=== PATIENT | female | born 1930 | race Caucasian/White ===

== ENCOUNTER 2016-12-31 10:37 | Emergency (ER) | payer BC, MEDICARE ==
[2015-11-16 09:14] VITALS: BMI 27.9
[~2016-12-31 10:37] MED LIST: ACETAMINOPHEN500 M1 PO; AVALIDE 300-12.1 TA1 PO; BENADRYL25 MG PO; CARTIA XT180 MG PO; FISH OIL 1,0001 CA1 PO; GAVISCON E1 TAB.CHEW PO; LUTEIN20 MG PO; METFORMIN HCL500 M1 PO; NEXIUM40 MG PO; PLAVIX75 MG PO; TIROSINT125 MCG PO; TRICOR48 MG PO
== END 2016-12-31 12:15 | disposition home or self-care (01) ==
LOC: D.ER 10:37
DX: T14.8 Other injury of unspecified body region (principal); X58.XXXA Exposure to other specified factors, initial encounter; Y93.89 Activity, other specified; Y92.89 Other specified places as the place of occurrence of the external cause; M62.838 Other muscle spasm; E11.9 Type 2 diabetes mellitus without complications; I10 Essential (primary) hypertension; K22.70 Barrett's esophagus without dysplasia

== ENCOUNTER 2017-09-03 16:49 | Inpatient (IN) | payer MEDICARE, BC ==
[~2017-09-03] VITALS: Ht 149.9 cm; Wt 57.7 kg
--- NOTE | 2017-09-03 17:00 | NUR ---
RECEIVED IN CORRECTION FROM DR HOFFMANN'S OFFICE AMBULATORY TO ROOM 1124. DX; ALTERED MENTAL STATUS. SHE IS DELUSIONAL AND HALLUCINATING, HEARING CHILDREN HER GARAGE, PEOPLE BREAKING IN HER HOUSE. SHE IS AMBULATORY AND LIVES ALONE, AND NO FAMILY AROUND ONLY A NEIGHBOR THAT CHECKS ON HER.
[2017-09-03] MEDS ORDERED: COZAAR100 MG PO (20:04)
[2017-09-03] MEDS ORDERED: HYDROCODON-ACE1 EAC7 PO (20:04)
[2017-09-03 20:06] VITALS: BP 158/78
[2017-09-03] MEDS ORDERED: TYLENOL W/CODEI1 TAB PO (20:06)
[2017-09-03] MEDS ORDERED: KRILL OIL 1,001 EAC1 PO (20:09)
[2017-09-03] MEDS ORDERED: VITAMIN B-121000 MCG PO (20:09)
[2017-09-03] MEDS ORDERED: METOPROLOL TART25 MG PO (20:10)
[2017-09-03] MEDS ORDERED: VITAMIN D31000 UNIT PO (20:11)
[2017-09-03] MEDS ORDERED: [UNRECOGNIZED DRUG - OTHER] (20:14)
--- NOTE | 2017-09-03 21:18 | NUR ---
RECEIVED IN BEDROOM. RESTING IN BED EYES CLOSED. RESPONDS TO VOICE. SIGNED ADMIT CONSENTS. ALERT AND ORIENTED X2. VERY HARD OF HEARING. CALM AND COOPERATIVE WITH CARE AND ASSESSMENTS. ENCOURAGE TO EXPRESS NEEDS. ORIENT TO UNIT AND FALLS SAFETY. CONTINUES TO REST QUIETLY IN BED. CONTINUE PLAN OF CARE
[2017-09-04 05:05] VITALS: BP 158/78; BMI 27.1
[2017-09-04 06:56] LABS: BASOPHILS 0.2 % (0-2); HEMATOCRIT 41.1 % (36.0-48.0); HEMOGLOBIN 12.9 g/dL (12-16); IMMATURE GRANULOCYTES 0.2 % (0-5); MCH 26.9 pg (26.0-34.0); MCHC 31.4 g/dL (31.0-37.0); MCV 85.8 fL (80.0-100.0); MEAN PLATELET VOLUME 10.6 fL (7.4-10.4); MONOCYTES 13.5 % (2-11); NEUTROPHILS 65.1 % (40-80); RBC 4.79 10x6/uL (4.00-5.40); RDW 13.5 % (11.5-14.5)
[2017-09-04 07:13] LABS: PLATELET COUNT 299 10x3/uL (130-400)
[2017-09-04 07:19] LABS: APPEARANCE CLEAR (CLEAR); BILIRUBIN NEGATIVE (NEGATIVE); COLOR YELLOW (YELLOW); GLUCOSE NEGATIVE (NEGATIVE); KETONE NEGATIVE (NEGATIVE); NITRITE NEGATIVE (NEGATIVE); PROTEIN NEGATIVE (NEGATIVE); UROBILINOGEN NORMAL (NORMAL)
[2017-09-04 07:26] LABS: ALBUMIN 3.5 g/dL (3.4-5.0); BILIRUBIN - TOTAL 0.43 mg/dL (0.2-1.3); CALCIUM 9.6 mg/dL (8.5-10.1); CARBON DIOXIDE 28.1 mmol/L (21.0-32.0); CHOL - HDL RATIO 2.4 ratio (2.3-4.1); LDL-HDL RATIO 1.1 ratio (1.5-3.5); POTASSIUM - SERUM 4.1 mmol/L (3.5-5.1); PROTEIN - SERUM 7.4 g/dL (6.4-8.2); THYROID STIMULATING HORMONE 20.82 uIU/mL (0.36-3.74)
[2017-09-04 07:41] LABS: HEMOGLOBIN A1C 6.3 % (4.8-6.0)
[2017-09-04 08:00] VITALS: BP 94/59
--- NOTE | 2017-09-04 10:30 | NUR ---
AWAKE AND ORIENTED TO NAME AND PLACE. UPSET ABOUT BEING HERE. SHE AMBULATES INDEPENDENTLY AND IS VERY HARD OF HEARING. COMPLIANT WITH TAKING PRESCRIBED MEDICATIONS. MONITOR FOR SAFETY AND CHANGES. WILL CONTINUE PLAN OF CARE.
[2017-09-04 10:31] VITALS: BMI 27.0
[2017-09-04 13:33] VITALS: Ht 149.9 cm; Wt 57.7 kg
[2017-09-04 19:43] VITALS: BP 143/82
--- NOTE | 2017-09-05 00:54 | NUR ---
B) Patient alert and oriented to self, calm and cooperative, I) Administered scheduled medications, monitored for safety, R) Medication compliant, resting quietly, P) Continue plan of care.
[2017-09-05 07:27] LABS: RAPID PLASMA REAGIN Non Reactive (Non Reactive); VITAMIN D 25 HYDROXY 31.9 ng/mL (30.0-100.0)
[2017-09-05 08:00] VITALS: BP 180/100
--- NOTE | 2017-09-05 09:00 | NUR ---
B) PATIENT IS VERY TALKATIVE THIS AM, SHE HAS MENTIONED HAVING BACK PROBLEMS AND SHE DISCUSSES TALKING ABOUT HER ARM. SHE CONFABULATES AND TRIES TO COVER FOR HER MEMORY LOSS WITH SOME JOKES AT TIMES, PATIENT AMBULATES, SHE DID HAVE HIGH BLOOD PRESSURE THIS AM 180/100. PATIENT TALKED TO DR. GREEN ABOUT A COUPLE HEALTH RELATED PROBLEMS. I) PROVIDE PRESCRIBED MEDS. R) PATIENT IS [place] AND IT IS DIFFICULT TO COMMUNICATE WITH HER BECAUSE OF THE HEARING LOSS. P) CONTINUE POC.
[2017-09-05 10:18] LABS: FOLATE (FOLIC ACID) - SERUM 17.4 ng/mL (>3.0)
--- NOTE | 2017-09-05 12:30 | PSY ---
PATIENT NAME:JENS RODRIGUEZ MEDICAL RECORD: [id number] : 34 LOCATION:[facility] ADMISSION DATE: 09/03/17 ACCOUNT: [id number] PSYCHIATRIC EVALUATION DATE OF EVALUATION: 09/04/17 IDENTIFYING DATA: The patient is 87 years old and she is admitted to the hospital on a voluntary basis. CHIEF COMPLAINT: "My back hurts." HISTORY OF PRESENT ILLNESS The patient had been to her primary care physician's office and was speaking in a delusional way and apparently has had some hallucinations. She felt that there was someone in her garage, some children and that they had broken into her house. She has called the police multiple times. She has had significant cognitive decline, lives alone, has no family and generally is not functioning very well. PAST MEDICAL HISTORY: Significant for hypothyroidism, gastroesophageal reflux disease, hypertension and a questionable stroke. PAST PSYCHIATRIC HISTORY: Denied by the patient. She says that she has never seen a psychiatrist or felt that it was necessary. FAMILY HISTORY: Negative for psychiatric disease. ALLERGIES: TETANUS TOXOID. MEDICATIONS: Current medications include Synthroid, [place], Tylenol with codeine, Lopressor, Cozaar, TriCor and a variety of vitamins. SOCIAL HISTORY: The patient is from [place]. She has lived most of her life in [place]. 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 She has never and has no children. She has no history of drug or alcohol abuse. She cannot explain why she moved from [place] to [place], especially since she has never lived here and has no family or friends here. MENTAL STATUS EXAMINATION: The patient is awake, alert and oriented to person and place. She is somewhat oriented to the date, but is not oriented to the situation, thinking that she is here to have her back pain addressed. She denies any active intent to harm herself or others. She denies psychotic symptoms, but does insist that what she was experiencing is correct and true. Thought processes are circumstantial and at times openly loose. She denies auditory or visual hallucinations. ASSETS: An ability to make her needs known. LIABILITIES: Limited insight. 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 AXIS II: None. AXIS III: Hypertension, hypothyroidism, hyperlipidemia. AXIS IV: Moderate stressors. AXIS V: Global assessment of functioning is 30. PLAN: At this time, the patient is admitted to the hospital for a comprehensive medical, psychological, and social evaluation. She will be treated with both mood stabilizing and memory enhancing medications as deemed appropriate. Her long-term prognosis is guarded. TRANSINT:[id number] Voice Confirmation ID: [id number] DOCUMENT ID: [id number] AMI FOSTER MD at 1230 CC: [id number] DICTATION DATE: 09/04/17 1230 FIBERGLASS FINISHER: 09/04/17 1334 ADM IN [place] [id number] [place] [id number]
--- NOTE | 2017-09-05 17:49 | NUR ---
PATIENT C/O CONSTIPATION AND HEMORRHOIDS, PATIENT BROUGHT A PIECE OF TOILET PAPER OUT OF THE BATHROOM TO SHOW THIS NURSE. CALLED DR. GREEN AND HE ORDERED LINZESS AND ANUSOL, SEE ORDER AND MAR.
[2017-09-05 19:29] VITALS: BP 117/96
--- NOTE | 2017-09-06 02:27 | NUR ---
B) Patient is alert and oriented to self and being in a hospital, very [place], conversation is difficult, I) Administered scheduled medications, monitored for safety, R) Medication compliant, calm and cooperative. P) Continue plan of care.
[2017-09-06 08:00] VITALS: BP 152/85
--- NOTE | 2017-09-06 09:29 | NUR ---
B) PATIENT IS AWAKE AND ALERT SHE IS TALKATIVE, SHE IS TALKING TO ZELALEM BRANTLEY A.TBen ABOUT HER PAST IN [place], SHE MENTIONS BEING IN LOVE ONCE WITH A SURGEON WHO STUDIED IN [place]. SHE SAYS THEY NEVER BECAUSE THE MAN CAME FROM A VERY PRETIGIOUS FAMILY AND SHE SAYS SHE WAS A "NOBODY" PATIENT IS ABLE TO AMBULATE INDEPENDENTLY. PATIENT IS ORIENTED X1. I) PROVIDE PRESCRIBED MEDS. R) PATIENT IS COMPLIANT WITH MEDS AND UNIT [place]. P) CONTINUE POC.
--- NOTE | 2017-09-06 12:31 | PN ---
PATIENT:JENS RODRIGUEZ MEDICAL RECORD: [id number] LOCATION:[facility] ADMISSION DATE: 09/03/17 PROGRESS NOTE DATE OF SERVICE: 09/05/2017 SUBJECTIVE: The patient's case was discussed with staff. She has no new complaint. The patient denies intent to harm herself or others. She is tolerating her medicines well. OBJECTIVE: The patient is partially oriented. She does have an elevated TSH. I am not sure if her Synthroid is strong enough or she just has not been taking it. In addition to this, she has not been complaining very much about back pain and I am going to discontinue the hydrocodone, which I really do not want her to have since it will cause significant amount of confusion. She does not have evidence of a urinary tract infection. ASSESSMENT: No change in diagnoses. PLAN: The patient is going to be tested by Dr. Viki Thomas tomorrow. I think the patient premorbidly was above average in intelligence, which is why I would explain her preservation of basic social skills and verbal abilities. I think she is going to test in the moderate range of overall cognitive visual spatial impairment. I may be surprised and she does not test that badly, but that is what I am going to guess. At any rate, I think it is important to have these tests results before I know which road to travel with her situation. I am very concerned about her living alone and having absolutely no support system. She tells me that her closest friend or associate is the branch office administrator of a local bank. When questioned about this, they have no relationship outside of banking business, it is just simply that this is the only person the patient interacts or talks with. She has no friends, no family, no relatives, no religious or social interactions. She lives completely alone and is isolated and interacts with a banker. TRANSINT:[id number] Voice Confirmation ID: [id number] DOCUMENT ID: [id number] AMI FOSTER MD at 1231 CC: [id number] DICTATION DATE: 09/05/17 1249 BANDOLEER STRAIGHTENER STAMPER: 09/05/17 1332 ADM IN [place] [id number] [place] [address]
[2017-09-06 20:31] VITALS: BP 133/89
--- NOTE | 2017-09-07 02:12 | NUR ---
B) Patient is alert and oriented to self and being in a hospital, calm and cooperative, I) Administered scheduled mmedications, PRN Tylenol 500 mg PO given for neck pain at 20:17, R) Medications compliant, pleasant and friendly, P) Continue plan of care.
[2017-09-07 08:40] VITALS: BP 136/80
--- NOTE | 2017-09-07 10:32 | PN ---
PATIENT:JENS RODRIGUEZ MEDICAL RECORD: [id number] LOCATION:[facility] ADMISSION DATE: 09/03/17 PROGRESS NOTE DATE OF SERVICE: 09/06/2017 SUBJECTIVE: The patient's case was discussed with staff. She has no new complaint. OBJECTIVE: The patient denies intent to harm herself or others. She tolerates her medicines well. She was tested by Dr. Viki Thomas, although she does remember even though I am talking to her a couple of hours after it occurred. She scored a 24/30, which is at least 5 points higher than I would have guessed. I think this lady was well above average in intelligence prior to being tested. She lives independently, although she is not doing well with it and at this time, she is resistant to going into assisted living. ASSESSMENT: No change in diagnoses. PLAN: The patient will be started on Aricept at a dose of 5 mg at bedtime. Aricept is being used to treat her underlying cognitive impairment. TRANSINT:[id number] Voice Confirmation ID: [id number] DOCUMENT ID: [id number] AMI FOSTER MD at 1032 CC: [id number] DICTATION DATE: 09/06/17 1240 RUBBER THREAD SPOOLER: 09/06/17 1323 ADM IN [place] [id number] [place] [id number]
--- NOTE | 2017-09-07 14:22 | NUR ---
IS ORIENTED X 3 BUT HAS SOME CONFUSION.DENIES HALLUCINATIONS.VERY HARD OF HEARING.IS AMBULATORY.COMPLIANT WITH STAFF AND MEDS.WILL CONTINUE WITH PLAN OF CARE,MONITOR FOR CHANGES AND SAFETY.
--- NOTE | 2017-09-07 15:00 | NUR ---
TYLENOL 500MG PO GIVEN FOR C/O POSTERIOR NECK PAIN.STATE'S "IT'S NERVE PAIN".RATED PAIN A 7.
--- NOTE | 2017-09-07 20:02 | PN ---
PATIENT:JENS RODRIGUEZ MEDICAL RECORD: [id number] LOCATION:[facility] ADMISSION DATE: 09/03/17 PROGRESS NOTE DATE OF SERVICE: 09/07/2017 SUBJECTIVE: The patient's case was discussed with staff. She has no new complaint. OBJECTIVE: The patient is in good behavioral control with limited insight about her condition. She generally is tolerating her medicines well. She has clear evidence of cognitive impairment. At this point, there does not appear to be anyone available to assist her at home. She is willing to hire in-home health care workers, but it is not possible to check on that over the weekend or to get that in place. Hopefully, after the weekend some arrangements can be made for her placement with the assistance of psychosocial rehabilitation counselor. TRANSINT:[id number] Voice Confirmation ID: [id number] DOCUMENT ID: [id number] AMI FOSTER MD at 2002 CC: [id number] DICTATION DATE: 09/07/17 1043 CALL CENTER DISPATCHER: 09/07/17 1131 ADM IN [place] [id number] [place] [address]
[2017-09-07 22:05] VITALS: BP 124/85
--- NOTE | 2017-09-07 22:52 | NUR ---
RECEIVED IN HALLWAY OUTSIDE OF NURSES STATION. SOCIALIZING WITH STAFF AND PEERS. CALM AND COOPERATIVE WITH CARE AND ASSESSMENT. VERY HARD OF HEARING. NO SIGNS OF HALLUCINATIONS. ENCOURAGE TO EXPRESS NEEDS. RESTING IN BED WITH EYES CLOSED AT THIS TIME. CONTINUE PLAN OF CARE.
[2017-09-08 08:00] VITALS: BP 165/74
--- NOTE | 2017-09-08 09:10 | NUR ---
ADMINISTERED [employer] MEDS WHOLE WITHOUT DIFFICULTY. NO S/SX OF ACUTE DISTRESS NOTED. ALERT AND ORIENTED X3. APPLIED LIDOCAINE PATCH TO LOWER BACK. WILL CONTINUE TO MONITOR
[2017-09-08 19:30] VITALS: BP 128/81
--- NOTE | 2017-09-08 22:35 | NUR ---
RECEIVED IN HALLWAY. WALKING TO BEDROOM. CALM AND COOPERATIVE WITH CARE AND ASSESSMENTS. VERY HARD OF HEARING. NO SIGNS OF HALLUCINATIONS. NO SIGNS OF PARANOIA. ENCOURAGE TO EXPRESS NEEDS. RESTING IN BED EYES CLOSED AT THIS TIME. CONTINUE PLAN OF CARE
[2017-09-09 08:42] VITALS: BP 118/43
[2017-09-09 08:53] VITALS: BP 175/85
--- NOTE | 2017-09-09 09:19 | PN ---
PATIENT:JENS RODRIGUEZ MEDICAL RECORD: [id number] LOCATION:[facility] ADMISSION DATE: 09/03/17 PROGRESS NOTE DATE OF SERVICE: 09/08/2017 SUBJECTIVE: The patient's case was discussed with staff. She has no new complaint. OBJECTIVE: The patient denies intent to harm herself or others. She tolerates her medicines well. She is limited in her insight. ASSESSMENT: No change in diagnoses. PLAN: Brief supportive and educational interventions were made. Long-term prognosis is guarded. The patient does not want to go to an assisted living center and wants to return home. TRANSINT:[id number] Voice Confirmation ID: [id number] DOCUMENT ID: [id number] AMI FOSTER MD at 0919 CC: [id number] DICTATION DATE: 09/08/17 1104 TALENT RECRUITER: 09/08/17 1216 ADM IN [place] [id number] [place] [id number]
[2017-09-09] MEDS ORDERED: ARICEPT5 MG PO (13:54)
[2017-09-09] MEDS ORDERED: FISH OIL 1,0001 CA1 PO (13:54)
[2017-09-09] MEDS ORDERED: LINZESS145 MCG PO (13:56)
[2017-09-09] MEDS ORDERED: SYNTHROID150 MCG PO (13:56)
[2017-09-09] MEDS ORDERED: ANUSOL-HC 2.5%30 GM TOPICAL (13:57)
[2017-09-09] MEDS ORDERED: LIDODERM 5 %1 PATCH TRANSDERM (13:57)
[2017-09-09 20:14] VITALS: BP 107/42
--- NOTE | 2017-09-10 09:05 | PN ---
PATIENT:JENS RODRIGUEZ MEDICAL RECORD: [id number] LOCATION:[facility] ADMISSION DATE: 09/03/17 PROGRESS NOTE DATE OF SERVICE: 09/09/2017 PSYCHIATRIC PROGRESS NOTE SUBJECTIVE: The patient's case was discussed with staff. She has no new complaint. OBJECTIVE: The patient is fully oriented, cooperative and has a euthymic mood. She denies any intent to harm herself or others. She is tolerating her medicines well. ASSESSMENT: No change in diagnoses. PLAN: The patient will be transitioned out of the hospital today. Followup will be with her primary care physician. The patient, in my view, should not be living alone. She should be in assisted living. She refuses to go to assisted living. The patient has undergone neuropsychological testing and is in the mild range of impairment. She has almost no social supports. I am very concerned about her being alone, but adult protective services is not willing to intervene based on the testing and there is nothing else that I can reasonably do. I am going to schedule as many supports as possible to help the patient on an outpatient basis. She is going to have Meals on Wheels. I am going to schedule followup at [facility]. Adult [facility] is not willing to do a welfare check. TRANSINT:[id number] Voice Confirmation ID: [id number] DOCUMENT ID: [id number] AMI FOSTER MD at 0905 CC: [id number] DICTATION DATE: 09/09/17 1356 MUSIC STORE MANAGER: 09/09/170 DIS IN 09/09/17 [facility] [address] [place] [address]
--- NOTE | 2017-09-15 12:01 | DS ---
PATIENT:JENS RODRIGUEZ :34 MEDICAL RECORD: [id number] DISCHARGE SUMMARY ADMISSION DATE: 09/03/17 DISCHARGE DATE: 09/09/17 IDENTIFYING DATA: The patient is 87 years old and she was admitted to the hospital on a voluntary basis. The patient had been to her primary care physician, where she had been speaking in a confused and delusional way. She also had some hallucinations present. She apparently called the police multiple times for no identifiable reason that they could find. She was admitted to the hospital for evaluation and treatment of these symptoms. HOSPITAL COURSE: The patient was admitted to the hospital and comprehensively evaluated from both a medical, psychological, and social standpoint. The patient clearly had dementia. She was tested by Dr. Viki Thomas and found to be in a moderate range of severity. The patient had no family support and no friends. 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 The patient was treated with both mood stabilizing and memory enhancing medications and had an improvement of her psychotic symptoms and no significant change in her cognitive impairment. She was in need of additional support, but refused. Adult protective services was contacted, but refused to intervene. The patient was subsequently transitioned to home with as many outpatient services as we could arrange. DISCHARGE DIAGNOSES: AXIS I: Senile dementia of the Alzheimer type with psychosis. AXIS II: None. AXIS III: Hypertension, hypothyroidism, hyperlipidemia. AXIS IV: Moderate stressors. AXIS V: Global assessment of functioning is 35. PLAN: At the time of discharge, the patient was not acutely dangerous to herself or others. She was tolerating her medications reasonably well. She has a very limited insight about her situation. Her disease is progressive. She does not want assisted living or half-way placement and as mentioned above, adult protective services has elected not to intervene based upon the severity of her illness. TRANSINT:[id number] Voice Confirmation ID: [id number] DOCUMENT ID: [id number] AMI FOSTER MD at 1201 CC: [id number] DICTATION DATE: 09/14/17 1134 TRAVEL SERVICES PROFESSIONAL: 09/14/172126 DIS IN 09/09/17 [place] [id number] [place] [address]
== END 2017-09-09 16:30 | disposition home or self-care (01) | DRG 57 ==
LOC: D.PSYCH 16:49
PROVIDERS: Psychiatry & Neurology Psychiatry; ADMIT Psychiatry & Neurology Psychiatry
DX: G30.1 Alzheimer's disease with late onset (principal); F02.81 Dementia in other diseases classified elsewhere, unspecified severity, with behavioral disturbance; I10 Essential (primary) hypertension; E03.9 Hypothyroidism, unspecified; E78.5 Hyperlipidemia, unspecified; M06.9 Rheumatoid arthritis, unspecified; E11.9 Type 2 diabetes mellitus without complications; K21.9 Gastro-esophageal reflux disease without esophagitis; E53.8 Deficiency of other specified B group vitamins; E55.9 Vitamin D deficiency, unspecified; M10.9 Gout, unspecified